=== PATIENT | female | born 1945 | race Caucasian/White ===

== ENCOUNTER 2019-08-03 06:10 | Day surgery (SDC) | payer OTHER ==
[~2019-08-03] VITALS: Ht 154.9 cm; Wt 61.2 kg
[2019-08-03 06:54] VITALS: BP 138/74
[2019-08-03 10:50] VITALS: BP 113/69
== END 2019-08-03 09:35 | disposition home or self-care (01) ==
LOC: DS 06:10 → OR 08:30 → DS 08:30
DX: E11.36 Type 2 diabetes mellitus with diabetic cataract (principal); H25.11 Age-related nuclear cataract, right eye; E11.40 Type 2 diabetes mellitus with diabetic neuropathy, unspecified; J45.909 Unspecified asthma, uncomplicated; I10 Essential (primary) hypertension; G43.909 Migraine, unspecified, not intractable, without status migrainosus; I25.10 Atherosclerotic heart disease of native coronary artery without angina pectoris; D64.9 Anemia, unspecified; K21.9 Gastro-esophageal reflux disease without esophagitis; F03.90 Unspecified dementia, unspecified severity, without behavioral disturbance, psychotic disturbance, mood disturbance, and anxiety; Z88.5 Allergy status to narcotic agent; Z79.899 Other long term (current) drug therapy; Z90.49 Acquired absence of other specified parts of digestive tract; Z78.0 Asymptomatic menopausal state; Z98.890 Other specified postprocedural states; Z86.73 Personal history of transient ischemic attack (TIA), and cerebral infarction without residual deficits
CPT/HCPCS: C1780; J2001; J2704; J3010; J3490; J7040

== ENCOUNTER → 2019-09-15 | Day surgery (SDC) | payer OTHER ==
[~2019-09-15] VITALS: Ht 154.9 cm; Wt 61.2 kg
[2019-09-15 06:47] VITALS: BP 149/87
[2019-09-15 09:58] VITALS: BP 144/72
== END | disposition home or self-care (01) ==
LOC: DS 06:11 → OR 09:30
DX: H25.12 Age-related nuclear cataract, left eye (principal); F41.9 Anxiety disorder, unspecified; G43.909 Migraine, unspecified, not intractable, without status migrainosus; Z98.41 Cataract extraction status, right eye; Z96.1 Presence of intraocular lens; Z79.899 Other long term (current) drug therapy
CPT/HCPCS: C1780; J2001; J2250; J3010; J7040